=== PATIENT | male | born 1950 | race Caucasian/White ===

== ENCOUNTER 2023-07-06 07:38 | Day surgery (SDC) | payer MEDICARE ==
[~2023-07-06] VITALS: Ht 165.1 cm; Wt 74.1 kg
[~2023-07-06 07:38] MED LIST: ACET-907 PO; ATOR40TA75 PO; BUSP10TA PO; CYCLOPENTOLATE 1% OPHTH SOLN 2ML BTL OD SCH; FLURBIPROFEN 0.03% OPHTH SOLN 2.5 ML OD SCH; IRON65TA2 PO; LISI5TAB11 PO; LR 1,000 ML IV SCH; METO1TAB87 PO; OCUVTAB4 PO; PANT40TA29 PO; PHENYLEPHRINE 2.5% OPHTH SOL 2ML OD SCH; RANO500T2 PO; TETRACAINE 0.5% OPHTH SOLN 4ML OD SCH; TIZA2TA PO; VITA500C24 PO
[2023-07-06] MEDS: LIDOCAINE 1% SDV 5ML VIAL As Ordered ONE (09:50)
[2023-07-06] MEDS: CEFUROXIME 1MG/0.1ML INTRACAMERAL INJ As Ordered ONE (09:50)
[2023-07-06] MEDS ORDERED: MIDAZOLAM 5MG/ML 1ML VIAL As Ordered ONE (10:07)
[2023-07-06 10:12] VITALS: BP 145/83; TEMP 98.1; O2SAT 96
== END 2023-07-06 10:42 | disposition home or self-care (01) ==
LOC: M SDC 07:38
PROVIDERS: ATTEND Ophthalmology
DX: H25.11 Age-related nuclear cataract, right eye (principal); I10 Essential (primary) hypertension; E78.00 Pure hypercholesterolemia, unspecified; I25.2 Old myocardial infarction; Z95.5 Presence of coronary angioplasty implant and graft; Z79.899 Other long term (current) drug therapy; F17.210 Nicotine dependence, cigarettes, uncomplicated
CPT/HCPCS: 66984; J0697; J2250; V2632

== ENCOUNTER → 2025-04-03 | Outpatient (CLI) | payer MEDICARE ==
[~2025-04-03] MED LIST changes: -CYCLOPENTOLATE 1% OPHTH SOLN 2ML BTL OD SCH; -FLURBIPROFEN 0.03% OPHTH SOLN 2.5 ML OD SCH; -LR 1,000 ML IV SCH; -PHENYLEPHRINE 2.5% OPHTH SOL 2ML OD SCH; -TETRACAINE 0.5% OPHTH SOLN 4ML OD SCH
== END ==
LOC: M ONCR 08:18
PROVIDERS: ATTEND General Practice
DX: C61 Malignant neoplasm of prostate (principal); R97.20 Elevated prostate specific antigen [PSA]; F17.210 Nicotine dependence, cigarettes, uncomplicated; Z79.899 Other long term (current) drug therapy

== ENCOUNTER 2025-04-07 10:44 | Outpatient (RCR) | payer MEDICARE ==
[2025-04-24] MEDS ORDERED: TAMS1CAP17 PO (10:40)
== END 2025-04-23 ==
LOC: M ONCR 10:44
PROVIDERS: ATTEND General Practice
DX: Z51.0 Encounter for antineoplastic radiation therapy (principal); C61 Malignant neoplasm of prostate

== ENCOUNTER 2025-04-28 09:42 | Outpatient (RCR) | payer MEDICARE ==
[~2025-04-28 09:42] MED LIST changes: +TAMS1CAP17 PO
== END 2025-05-24 ==
LOC: M ONCR 09:42
PROVIDERS: ATTEND General Practice
DX: Z51.0 Encounter for antineoplastic radiation therapy (principal); C61 Malignant neoplasm of prostate